=== PATIENT | female | born 1955 | race Caucasian/White ===

== ENCOUNTER → 2020-06-21 14:58 | Outpatient (BNVA) | payer MEDICARE, SELFPAY | PROVIDERS: PCP Family Medicine; Visit Provider Obstetrics & Gynecology | DX: R10.2 Pelvic and perineal pain (principal) | CPT/HCPCS: 99212 ==

== ENCOUNTER 2020-12-14 13:45 | Outpatient (REF) | payer MEDICARE, SELFPAY ==
[2020-12-14 16:33] LABS: Hematocrit 38.3 % (37-47); Hemoglobin 12.1 g/dl (12.0-16.0); Mean Corpuscular HGB Conc 31.6 g/dl (31.0-35.0); Mean Corpuscular Hemoglobin 26.9 pg (27.0-33.0); Mean Corpuscular Volume 85.1 fL (80-98); Mean Platelet Volume 10.2 fL (9.4-12.3); Platelet Count 395 X10*3/uL (160-400); Red Cell Distribution Width 14.2 % (11.0-16.0); White Blood Count 6.6 X10*3/uL (4.8-10.8)
[2020-12-14 17:07] LABS: Cholesterol 231 mg/dL; HDL Cholesterol 62 mg/dL; LDL Cholesterol Calculated 137 mg/dl; Triglycerides 160 mg/dL
[2020-12-14 17:29] LABS: Thyroid Stimulating Hormone 3.59 uIU/mL (0.32-4.0)
[2020-12-14 17:59] LABS: Erythrocyte Sedimentation Rate 13 MM/HR (0-20)
[2020-12-15 12:02] LABS: Antibody to SS-A Antigen <1.0 NEG AI (<1.0 NEG); Antibody to SS-B Antigen <1.0 NEG AI (<1.0 NEG)
[2020-12-15 13:12] LABS: Anti Nuclear Antibody Screen NEGATIVE (NEGATIVE)
== END 2020-12-14 13:46 | disposition home or self-care (01) ==
LOC: HO.HMGCLDS 13:45
PROVIDERS: PCP Nurse Practitioner Family; Visit Provider Nurse Practitioner Family
DX: I10 Essential (primary) hypertension (principal); E03.8 Other specified hypothyroidism; E06.3 Autoimmune thyroiditis; M79.10 Myalgia, unspecified site; M25.50 Pain in unspecified joint; R53.83 Other fatigue
CPT/HCPCS: 36415; 80061; 84443; 85027; 85652; 86038; 86039; 86235

== ENCOUNTER 2021-03-29 14:16 | Outpatient (REF) | payer MEDICARE, SELFPAY ==
--- NOTE | ~2021-03-29 | MM_ITS ---
EXAMINATION: MM SCREENING DIGITAL BREAST TOMOSYNTHESIS, BILATERAL CLINICAL INFORMATION: Screening. Asymptomatic. Family history breast cancer, sister. The lifetime risk of breast cancer based on the Tyrer-Cuzick Model is 13%. COMPARISON: Mammography: 06/29/2019, 05/29/2018, 05/09/2017, 10/29/2016 TECHNIQUE: Digital breast tomosynthesis is performed in both the craniocaudal and mediolateral oblique views along with computer-aided detection (CAD). Synthesized 2D images are generated from the tomosynthesis. FINDINGS: There are scattered areas of fibroglandular density (ACR BI-RADS breast composition Category b). There are no significant masses, abnormal calcifications, or other abnormalities. There is no developing density. The axilla are unremarkable. No skin thickening. MM/MM tomosynthesis screening BI IMPRESSION: No mammographic evidence of malignancy. ASSESSMENT: BI-RADS 1: Negative RECOMMENDATION: Routine annual mammography screening. This patient's information was entered into a reminder system with a target due date for their next mammogram.
== END 2021-03-29 14:17 | disposition home or self-care (01) ==
LOC: HO.MAMMO 14:16
PROVIDERS: PCP Nurse Practitioner Family; Visit Provider Nurse Practitioner Family
DX: Z12.31 Encounter for screening mammogram for malignant neoplasm of breast (principal)
CPT/HCPCS: 77063; 77067

== ENCOUNTER 2023-05-20 09:23 | Outpatient (REF) | payer MEDICARE, SELFPAY | END 2023-05-20 09:24 | disposition home or self-care (01) | LOC: HO.HMGCLDS 09:23 | PROVIDERS: PCP Nurse Practitioner Family; Visit Provider Nurse Practitioner Family | DX: Z00.00 Encounter for general adult medical examination without abnormal findings (principal); I10 Essential (primary) hypertension | CPT/HCPCS: 36415; 80053; 80061; 84443; 85025 ==

== ENCOUNTER 2023-10-07 13:58 | Outpatient (REF) | payer MEDICARE, SELFPAY | END 2023-10-07 13:59 | disposition home or self-care (01) | LOC: HO.MAMMO 13:58 | PROVIDERS: PCP Nurse Practitioner Family; Visit Provider Nurse Practitioner Family | DX: Z12.31 Encounter for screening mammogram for malignant neoplasm of breast (principal) | CPT/HCPCS: 77063; 77067 ==

== ENCOUNTER → 2023-10-07 14:15 | Outpatient (BNV) | payer MEDICARE, SELFPAY | PROVIDERS: PCP Nurse Practitioner Family; Visit Provider Radiology Diagnostic Radiology | DX: Z12.31 Encounter for screening mammogram for malignant neoplasm of breast (principal) | CPT/HCPCS: 77063; 77067 ==

== ENCOUNTER 2024-05-01 09:50 | Outpatient (REF) | payer MEDICARE, SELFPAY ==
[2024-05-01 13:26] LABS: MANUAL DIFF FLAG NO
[2024-05-01 13:34] LABS: Basophils Absolute Auto 0.1 X10*3/uL (0.0-0.2); Basophils Percent Auto 1.2 % (0-2); Eosinophils Absolute Auto 0.3 X10*3/uL (0.0-0.4); Eosinophils Percent Auto 4.6 % (0-4); Hemoglobin 12.4 g/dl (12.0-16.0); Imm Gran Abs Auto 0.04 X10*3/uL (0.00-0.03); Imm Gran Pct Auto 0.6 % (0.0-0.4); Lymphocytes Absolute Auto 1.3 X10*3/uL (1.2-4.9); Lymphocytes Percent Auto 19.7 % (20-40); Mean Corpuscular HGB Conc 33.5 g/dl (31.0-35.0); Mean Corpuscular Hemoglobin 30.5 pg (27.0-33.0); Mean Corpuscular Volume 91.1 fL (80.0-98.0); Mean Platelet Volume 10.9 fL (9.4-12.3); Monocytes Absolute Auto 0.5 X10*3/uL (0.1-1.2); Monocytes Percent Auto 6.6 % (2-11); Neutrophils Absolute Auto 4.6 x10*3/uL (2.0-8.3); Neutrophils Percent Auto 67.3 % (45-73); Platelet Count 298 X10*3/uL (160-400); Red Blood Count 4.06 X10*6/uL (4.20-5.50); Red Cell Distribution Width 12.9 % (11.0-16.0); White Blood Count 6.8 X10*3/uL (4.8-10.8)
[2024-05-01 13:53] LABS: Alanine Aminotransferase 11 U/L (0-31); Albumin Level 3.9 g/dL (3.5-5.0); Alkaline Phosphatase 155 U/L (39-117); Anion Gap 10 (12-20); Aspartate Amino Transferase 16 U/L (5-31); Bilirubin Total 0.9 mg/dL (0.0-1.0); Blood Urea Nitrogen 23 mg/dL (9-16); Calcium 9.8 mg/dL (8.4-10.2); Carbon Dioxide 27 mmol/L (22-29); Chloride 102 mmol/L (96-108); Cholesterol 182 mg/dL (<200); Estimated Glomerular Filt Rate > 60; Glucose Random 96 mg/dL (60-115); HDL Cholesterol 52 mg/dL (>40); LDL Cholesterol Calculated 104 mg/dL (<100); Potassium 4.2 mmol/L (3.3-5.1); Sodium 135 mmol/L (135-145); Total Protein 7.2 g/dL (6.5-8.0); Triglycerides 130 mg/dL (<150)
[2024-05-01 14:08] LABS: Free T4 (Free Thyroxine) 1.24 ng/dL (0.71-1.85); TSH reflex Free T4 0.92 uIU/mL (0.32-4.0)
[2024-05-01 14:10] LABS: Estimated Average Glucose 100 mg/dL; Hemoglobin A1c % 5.1 % (<6.0)
== END 2024-05-01 09:51 | disposition home or self-care (01) ==
LOC: HO.HMGCLDS 09:50
PROVIDERS: PCP Family Medicine; Visit Provider Family Medicine
DX: E78.2 Mixed hyperlipidemia (principal); I10 Essential (primary) hypertension; R73.09 Other abnormal glucose; E03.8 Other specified hypothyroidism; E06.3 Autoimmune thyroiditis; R53.83 Other fatigue
CPT/HCPCS: 36415; 80053; 80061; 82306; 83036; 84439; 84443; 85025

== ENCOUNTER 2024-10-12 14:09 | Outpatient (REF) | payer MEDICARE, SELFPAY ==
--- NOTE | ~2024-10-12 | MM_ITS ---
EXAMINATION: MM SCREENING DIGITAL BREAST TOMOSYNTHESIS, BILATERAL CLINICAL INFORMATION: Screening. Asymptomatic. COMPARISON: Mammography: Comparison is made with available priors TECHNIQUE: Digital breast mammography with tomosynthesis is performed in both the craniocaudal and mediolateral oblique views along with computer-aided detection (CAD). FINDINGS: The breasts are almost entirely fatty (ACR BI-RADS breast composition Category a). Bilateral reduction mammoplasty. There are no significant masses, abnormal calcifications, or other abnormalities. MM/MM tomosynthesis screening BI IMPRESSION: No mammographic evidence of malignancy. ASSESSMENT: BI-RADS BI-RADS 2 - Benign Findings RECOMMENDATION: Routine annual mammography screening. 1 year F/U This examination should not preclude the clinical evaluation of a suspicious palpable abnormality. This patient's information was entered into a reminder system with a target due date for their next mammogram. Electronically signed by: Lety Gracia DO 10/15/2024 06:00 AM [facility] [place]
--- OUTSIDE RECORDS SUMMARY | 2024-10-12 16:56 | XMS_ITS | Continuity of Care Document ---
Author Organization [facility] Address [address] [place] [address]- Care Team Providers Care Program Administrator Name Role Phone Lelia Marrero DO Primary Care Physician Encounter [facility] AC[facility] R [id number] Date(s): 05/28/24 - 09/18/24 [facility] [address] [place] [address]- Attending Physician: Salima Singh NP Encounter Type: Pre Office Visit Allergies, Adverse Reactions, Alerts No Known Allergies Immunizations Given and Recorded Vaccine Date Status Refusal Reason SARS-CoV-2 (COVID-19) mRNA-1273 vaccine 10/31/20 G iven SARS-CoV-2 (COVID-19) mRNA-1273 vaccine 10/03/20 G iven Medications morphine 15 mg oral tablet, extended release 1 tablet = 15 mg, By Mouth, Every 12 hours, PRN Pain , Moderate, # 28 tablet, 0 Refills, Maintenance, 06/23/10 10:32:16 AM EST, ER Tablet Start Date: 06/23/10 Stop Date: 07/07/10 Status: Ordered Quantity: 28.0 Unit: tablet Repeat number: 1 Patient Care team information Care Team Personnel Name: Roxi Lou RN Position: ANATOLIY FELDER RN Member Role: Primary Care Nurse Name: Lelia Marrero DO Position: Reference Physician Member Role: PCP Address: [address] [place] [address] Telecom: Name: Monica Padron RN Position: ANATOLIY RN Member Role: Primary Care Nurse Care Team Related Persons Name: STEVE RUBIN Insurance Providers Guarantor name: [facility]SH[facility] Information #: 1 Payer: SATISH Member Number: [id number] Policy Number: SATISH Group Number: [id number] Health Plan Information #: 2 Payer: NA Member Number: [id number] Policy Number: NA Group Number: NA
--- OUTSIDE RECORDS SUMMARY | 2024-10-12 16:56 | XMS_ITS | Continuity of Care Document ---
Author Organization [facility] Address [address] [place] [address]- Care Team Providers Care Train Starter Name Role Phone Lelia Marrero DO Primary Care Physician Encounter [facility] Date(s): 08/19/24 - 09/18/24 [facility] [address] [place], [place] [address] Attending Physician: Elijah Ferguson Admitting Physician: Elijah Ferguson Referring Physician: Elijah Ferguson Encounter Type: Triage Allergies, Adverse Reactions, Alerts No Known Allergies [...] Position: Reference Physician Member Role: PCP Address: [address] [place] [address] Telecom: Name: Monica Padron RN Position: [facility] RN Member Role: Primary Care Nurse Care Team Related Persons Name: CARYN STEVE Insurance Providers Guarantor name: [facility] Information #: 1 Payer: SATISH Member Number: NA Policy Number: NA Group Number: NA
--- OUTSIDE RECORDS SUMMARY | 2024-10-12 16:57 | XMS_ITS | Clinical Summary ---
Author Organization [facility] Address [address] [place], [place] [id number] Care Team Providers Care Ui Developer With Angular J[employer] Name Role Phone Cayetano Weaver MD Primary Care Provider Unavailab le Allergies No known active allergies Medications Medication Sig Dispensed Refills Start Date End Date Status cycloSPORINE (RESTASIS) 0.05 % ophthalmic emulsion Place 1 drop into both eyes 2 (two) times a day. 0 03/16/2022 Active celecoxib (CeleBREX) 100 MG capsuleIndications:A rthralgia, unspecified joint Take 1 capsule (100 mg total) by mouth 2 (two) times a day. 180 capsule 3 05/14/2023 Active levothyroxine (SYNTHROID) tablet 150 mcgIndications:Hypot hyroidism, unspecified type TAKE 1 TABLET(150 MCG) BY MOUTH DAILY 90 tablet 3 05/14/2023 Active losartan-hydrochloro thiazide (HYZAAR) 100-12.5 MG per tabletIndications:Es sential hypertension Take 1 tablet by mouth daily. 90 tablet 3 05/14/2023 Active metoprolol tartrate (LOPRESSOR) 25 MG tabletIndications:Pa lpitations Take 1 tablet (25 mg total) by mouth daily. 90 tablet 3 05/14/2023 Active omeprazole (PriLOSEC) 20 MG capsuleIndications:G astroesophageal reflux disease, unspecified whether esophagitis present Take 1 capsule (20 mg total) by mouth daily. 90 capsule 0 11/15/2023 Active vitamin D3 (cholecalciferol) 25 MCG (1000 UT) tablet Take 2 tablets (2,000 Units total) by mouth daily. 0 Active metFORMIN (GLUCOPHAGE-XR) ER 24 hr tablet 500 mgIndications:Morbid obesity (HCC) Take 1 tablet (500 mg total) by mouth Every evening with dinner. 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 Essential hypertension 12/10/2017 GERD (gastroesophageal reflux disease) 5 Overview: Dr Collier Osteoarthritis Overview: Knees Vitamin D deficiency Osteopenia Overview: DEXA: 07/2014 t-2.3 hips, FRAX 11%/2% Resolved Problems Problem Noted Date Diagnosed Date Resolved Date Morbid obesity with body mas s index (BMI) of 45.0 to 49.9 in adult 12/10/2017 05/15/2022 H/O colonoscopy 05/12/2016 04/13/2020 Overview: Normal Dr Collier Depression 04/13/2020 Immunizations Name Administration Dates Next Due Covid-19 (Moderna 12+) 100mcg/0.5mL dosage 06/02,10/31/2020,10/03/2020 Influenza Quad (High Dose Fl uzone) 0.7mL >65Yrs (HD-IIV4) 05/14/2023 Influenza TIV (IM) (inactive) 05/29/2018 Influenza Trivalent (Fluad) 0.5mL (65 yrs &>) 06/02/2024 Influenza Trivalent (Fluzone High Dose) 0.7 mL (65yrs &>) 05/12/2020 Pneumococcal Conjugate PCV20 06/02/2024 Pneumococcal Polysaccharide PPSV23 12/27/2015 Tdap 03/13/2018 Family History Medical History Relation Name Comments No Sig Med Hx Daughter Stroke Father Diabetes Maternal Grandmother Pulmonary fibrosis Mother No Sig Med Hx Sister Relation Name Status Comments Daughter Father Maternal Grandfather Maternal Grandmother Mother Paternal Grandfather Paternal Grandmother Sister Alive Social History Tobacco Use Types Packs/Day Years Used Date Smoking Tobacco: Never Smokeless Tobacco: Never Tobacco Cessation:Counseling Given: Not Answered Alcohol Use Standard Drinks/Week Comments No 0 (1 standard drink = 0.6 oz pur e alcohol) Sex and Gender Information Value Date Recorded Sex Assigned at Female 05/20/2019 3:57 PM EDT Gender Identity Female 05/20/2019 3:57 PM EDT Sexual Orientation Not on file Job Start Date Occupation Industry Not on file Not on file Not on file Last Filed Vital Signs Vital Sign Reading Time Taken Comments Blood Pressure 155/73 06/02/2024 10:39 AM EDT Pulse 58 06/02/2024 10:39 AM EDT Temperature 36.3 ??C (97.3 ??F) 11/15/2023 2:21 PM ED T Respiratory Rate 18 06/02/2024 10:33 AM EDT Oxygen Saturation 98% 06/02/2024 10:33 AM EDT Inhaled Oxygen Concentration - - Weight 103.9 kg (229 lb) 06/02/2024 10:33 AM EDT Height 160 cm (5' 3 ) 06/02/2024 10:33 AM EDT Body Mass Index 40.57 06/02/2024 10:33 AM EDT Plan of Treatment Health Maintenance Due Date Last Done Comments Hepatitis C Screening 1955 Shingrix-Zoster Vaccine (1 of 2) 2004 RSV Adult > 60+ Yrs or (1 - Risk 60-74 years 1-dose series) 2014 Osteoporosis Screening (DEXA Scan) 2019 COVID-19 Vaccine ( season) 2024 06/02/2021, 10/31/2020, 10/03/2020 BMI Counseling 06/02/2025 06/02/2024, 04/0 12/2023, 05/14/2023, Additional history exists Depression Screening 06/02/2025 06/02/2024, 06/02/2024, 12/18/2022, Additional history exists Fall Risk Assessment 06/02/2025 06/02/2024, 06/02/2024, 12/18/2022, Additional history exists Preventative Health Evaluation 06/02/2025 06/02/2024, 12/18/2022, 11/14/2021, Additional history exists Breast Cancer Screening (Mammogram) 10/07/2025 10/07/2023, 10/07/2023, 04/03/2021, Additional history exists Colon Cancer Screening (Colonoscopy) 05/12/2026 05/12/2016 DTap / Tdap / Td (2 - Td or Tdap) 03/13/2028 03/13/2018 Influenza Vaccine Completed 06/02/2024, , 05/12/2020, Additional history exists Pneumococcal Vaccine Completed 06/02/2024, 12/27/19 16 Hepatitis B Vaccines Aged Out No long er eligible based on patient's age to complete this topic RSV Ped < 20 months Aged Out No longe r eligible based on patient's age to complete this topic Care Teams Ui Developer With [employer] J[employer] Relationship Specialty Start Date End Date Cayetano Weaver MD PCP - General Family Medicine 11/15/23
--- OUTSIDE RECORDS SUMMARY | 2024-10-12 16:57 | XMS_ITS | Clinical Summary ---
Author Organization [address] Address [address] [facility] [place] [place] [address] Phone Care Team Providers Care Rides Attendant Name Role Phone Joshua Griggs MD Primary Care Provider Allergies No known active allergies Medications cycloSPORINE (RESTASIS) 0.05 % ophthalmic emulsion Place 1 drop into both eyes 2 (two) times a day. 2 Active celecoxib (CeleBREX) 100 mg capsule Take 1 capsule (100 mg total) by mouth 2 (two) times a day. 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 90 tablet 3 4 Active losartan-hydroCHL OROthiazide (HYZAAR) 100-12.5 mg per tabletIndications :Essential hypertension Take 1 tablet by mouth 1 (one) time each day. 90 tablet 3 4 Active metoprolol tartrate (LOPRESSOR) 25 mg tabletIndications :Essential hypertension Take 1 tablet (25 mg total) by mouth 1 (one) time each day. 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 GERD (gastroesophageal reflux disease) 5 Overview (10/01/2023): Dr Collier Encounters Date Type Department Care Team Description 09/10/2024 4:45 PM EST Telemedicine Primary Care - [address] [address] Joshua Griggs MD Morbid obesity (CMS/HCC) (Primary Dx) 09/02/2024 11:00 AM EST Telemedicine Family Medicine [address] [place] [address] Tony Sultana DO COVID-19 (Primary Dx) from Last 3 Months Immunizations Name Administration Dates Next Due Influenza Quadravalent, 0.5m l (Fluzone High-dose) 65yo and older 05/14/2023 Influenza trivalent, 0.5mL ( Fluzone High-dose) 65yo and older 05/12/2020 Influenza trivalent, 0.5mL, preservative free (Fluarix; FluLaval; Fluzone) ages 6mo and older (Afluria) 3 years and older 05/29/2018 Moderna SARS-CoV-2 COVID-19, mRNA, LNP-S, preservative free 06/02/2021,10/31/2020,10/03/2020 Pneumococcal polysaccharide 23 valent (Pneumovax 23) 2yo and older 12/27/2015 Tdap Tetanus diptheria acell ular pertussis (Boostrix; Adacel) 7yo and older 03/13/2018 Surgical History Surgery Date Site/Laterality Comments ESOPHAGOGASTRODUODENOSCOPY 04/27/2005 PROCEDURE:ESOPHAGOGASTRODUODENO SCOPY;COMMENT:Gastric polyp, GERD COLONOSCOPY 06/06/2016 PROCEDURE:COLONOSCOPY;COMMENT:N dalia Collier TOTAL KNEE ARTHROPLASTY 2010 Right PROCEDURE:TOTAL KNEE ARTHROPLASTY CHOLECYSTECTOMY PROCEDURE:LAPAROSCOPIC CHOLECYSTECTOMY LEFT OOPHORECTOMY PROCEDURE:LEFT OOPHORECTOMY OTHER SURGICAL HISTORY Left PROCEDURE:thumb arthropathy BREAST SURGERY PROCEDURE:REDUCTION MAMMAPLASTY TOTAL KNEE ARTHROPLASTY 2015 Left PROCEDURE:REPLACEMENT TOTAL KNEE TUBAL LIGATION PROCEDURE:TUBAL LIGATION JOINT REPLACEMENT PROCEDURE:JOINT REPLACEMENT ESOPHAGOGASTRODUODENOSCOPY 12/19/2007 PROCEDURE:ESOPHAGOGASTRODUODENO SCOPY;COMMENT: EGD: GERD, Mild chronic gastritis, H Pylori neg, Gastric polyp COLONOSCOPY 04/27/2005 PROCEDURE:COLONOSCOPY;COMMENT:N dalia Medical History Medical History Date Comments Hypothyroid DX:Hypothyroid Vitamin D deficiency DX:Vitamin D deficiency Osteopenia DX:Osteopenia;CO MMENT:DEXA: 05/22/2007, 07/2014 t-2.3 hips, FRAX 11%/2%, 05/2018 Osteopenia: T-2.2 hip ( 14.3% decrease) FRAX 9.2/1.3% H/O colonoscopy 06/08/2016 DX:H/O colonosco py;COMMENT:05/[address] Collier, 12/19/2007 Abnormal breast finding 10/29/2016 DX:Abnor mal breast finding;COMMENT:RT US faint oval parenchymal density Prob benign, repeat Mammo 04/2017 benign repeat 12 months Osteoarthritis DX:Osteoarthriti s;COMMENT:Knees Depression DX:Depression GERD (gastroesophageal reflux disease) 04/2005 DX:GERD (gastroesophageal reflux disease);COMMENT:12/2007 EGD GERD, Gastric polyp Dr Collier Hypertension DX:Hypertension Morbid obesity (CMS/HCC) 10/2015 DX:Morb id obesity (HCC);COMMENT:Dr Jer Senior Screening for breast cancer DX:S creening for breast cancer;COMMENT:10/2016, 05/09/2017 Benign, 05/29/2018 benign Screening for cervical cancer DX :Screening for cervical cancer;COMMENT:10/2016 neg/neg Family History Medical History Relation Name Comments No Known Problems Daughter Stroke Father Diabetes Maternal Grandmother Pulmonary fibrosis Mother No Known Problems Sister Relation Name Status Comments Daughter Father Maternal Grandfather Maternal Grandmother Mother Paternal Grandfather Paternal Grandmother Sister Alive Social History Tobacco Use Types Packs/Day Years Used Date Smoking Tobacco: Never Smokeless Tobacco: Never Alcohol Use Standard Drinks/Week Comments No 0 (1 standard drink = 0.6 oz pur e alcohol) Housing Instability Answer Date Recorde d Are you worried that in the next 2 months you may not have stable housing? No 09/02/2024 Food Access & Nutrition Answer Date Rec orded Do you have access to a vari ety of food including fruits and vegetables? Yes 09/02/2024 Health Literacy Answer Date Recorded How often do you need to hav e someone help you when you read instructions, pamphlets, or other written material from your doctor or pharmacy? Never 09/02/2024 Caregiver: How often do you need to have someone help you when you read instructions, pamphlets, or other written material from your doctor or pharmacy? Not on file 09/02/2024 Transportation Answer Date Recorded Has the lack of transportati on kept you from meetings, work, or from getting things needed for daily living? No Has the lack of transportati on kept you from medical appointments or from getting medications? No 09/02/2024 Social Isolation Answer Date Recorded How often do you feel lonely or isolated from th ose around you? Never 09/02/2024 Food Risk Answer Date Recorded Within the past 12 months we worried whether our food would run out before we got money to buy more. Never true 09/02/2024 Within the past 12 months th e food we bought just didn't last and we didn't have money to get more. Never true 09/02/2024 Dependent Care Answer Date Recorded Do you need help finding or paying for care for your loved ones. For example, child therapist or elderly care for an older adult? No 09/02/2024 Education Answer Date Recorded Do you think completing more education or training, like finishing a GED, going to college, or learning a trade, would be helpful for you? Yes 09/02/2024 Employment and Income Answer Date Recor ded During the last four weeks, have you been actively looking for work? No 09/02/2024 Living Situation Answer Date Recorded What is your living situation? 0 09/02/2024 Comments Unknown Sex and Gender Information Value Date Recorded Sex Assigned at Not on file Legal Sex Female 10:58 PM EST Gender Identity Not on file Sexual Orientation Not on file Obstetrics History Last Filed Vital Signs Vital Sign Reading Time Taken Comments Blood Pressure 155/73 06/02/2024 10:39 AM EDT Sitting Right arm Pulse 58 06/02/2024 10:39 AM EDT Temperature - - Respiratory Rate - - Oxygen Saturation - - Inhaled Oxygen Concentration - - Weight 104 kg (229 lb) 06/02/2024 10:33 AM EDT Height 160 cm (5' 3 ) 06/02/2024 10:33 AM EDT Body Mass Index 40.57 06/02/2024 10:33 AM EDT Plan of Treatment Upcoming Encounters Date Type Department Care Team (Late st Contact Info) Description 03/15/2025 1:30 PM EDT Office Visit Internal Medicine - [facility] [address] [place] [address] Joshua Griggs MD [address] [place] [address] Health Maintenance Due Date Last Done Comments Breast Cancer Screening 1955 Zoster Vaccines (1 of 2) 2004 RSV Immunization Patients 60+ Years Old (1 - Risk 60-74 years 1-dose series) 2014 Cholesterol Screening (Lipid Panel) 07/15/2022 Hepatitis C Screening 07/15/2022 Medicare Annual Wellness Visit 07/15/2022 Osteoporosis Screening (Bone Density Screening) 07/15/2022 Hypertension/CHF/CAD Annual BMP Blood Test 08/17/2022 08/17/2021, 04/13/2020 Falls Risk Assessment 12/19/2023 12/18/2022 COVID-19 Vaccine ( season) 2024 06/02/2021, 10/31/2020, 10/03/2020 Depression Screening 09/02/2025 09/02/2024, 12/19/19 23 Social Influencers of Health Screening 09/02/2025 09/02/2024 Colorectal Cancer Screening: Colonoscopy 05/12/2026 05/12/2016 DTaP,Tdap,and Td Vaccines (2 - Td or Tdap) 03/13/2028 03/13/2018 Influenza Vaccine Completed 06/02/2024, , 05/12/2020, Additional history exists Pneumococcal Vaccine: 50+ Years Completed 06/02/2024, 12/27/2015 HIB Vaccines Aged Out No longer eligi ble based on patient's age to complete this topic HPV Vaccines Aged Out No longer eligi ble based on patient's age to complete this topic Hepatitis A Vaccines Aged Out No long er eligible based on patient's age to complete this topic Hepatitis B Vaccines Aged Out No long er eligible based on patient's age to complete this topic IPV Vaccines Aged Out No longer eligi ble based on patient's age to complete this topic MMR Vaccines Aged Out No longer eligi ble based on patient's age to complete this topic Meningococcal ACWY Vaccine Aged Out N o longer eligible based on patient's age to complete this topic Meningococcal B Vacine Aged Out No lo nger eligible based on patient's age to complete this topic RSV Immunization Patients Under 20 months Aged Out No longer eligible based on patient's age to complete this topic Varicella Vaccines Aged Out No longer eligible based on patient's age to complete this topic Procedures Procedure Name Priority Date/Time Associated Diagnosis Comments DEPRESSION SCREENING Routine 12/18/2022 FALLS RISK ASSESSMENT Routine 12/18/2022 ANNUAL BMP BLOOD TEST Routine 08/17/2021 COLONOSCOPY Routine 05/12/2016 from Last 3 Months or Most Recently Relevant to Health Maintenance Results * Falls Risk Assessment (12/18/2022) Pathologist [facility] [place] Risk Assessment abstracted Historical Provider HEALTH MAINTENANCE Final Result * Depression Screening (12/18/2022) Pathologist [facility] Depression Screening abstracted Historical Provider HEALTH MAINTENANCE Final Result * Annual BMP Blood Test (08/17/2021) Pathologist [facility] Annual BMP Blood Test abstracted us Historical Provider HEALTH MAINTENANCE Final Result * Colonoscopy (05/12/2016) Colonoscopy abstracted Anatomical Region Laterality Modality Other Historical Provider HEALTH MAINTENANCE Final Result from Last 3 Months or Most Recently Relevant to Health Maintenance Insurance [employer] [employer]IC[place] Care Teams Rides Attendant Relationship Specialty Start Date End Date Joshua Griggs MD [address] [facility] [address] [place] [address] PCP - General Internal Medicine 07/07/24
--- OUTSIDE RECORDS SUMMARY | 2024-10-12 16:57 | XMS_ITS ---
Author Name [facility] Organization Unknown History of Medication Use Medication Directions Dispensed Refills Start Date End Date Stat nirmatrelvir-ritonavi r (Paxlovid) 300 mg (150 mg x 2)-100 mg tablet therapy pack Take 3 tablets by mouth every 12 (twelve) hours for 5 days. Take number of ordered nirmatrelvir tablets (300 mg = 2 tablet) and ritonavir tablet (100 mg = 1 tablet) at the same time 09/02/2024 active levothyroxine (SYNTHROID, LEVOTHROID) 150 mcg tablet Take 1 tablet (150 mcg total) by mouth 1 (one) time each day before breakfast. 07/30/2024 active losartan-hydrochlorot hiazide (HYZAAR) 100-12.5 MG per tablet Take 1 tablet by mouth daily. 05/14/2023 active cycloSPORINE (RESTASIS) 0.05 % ophthalmic emulsion Place 1 drop into both eyes 2 (two) times a day. 03/16/2022 active celecoxib (CeleBREX) 100 mg capsule Take 1 capsule (100 mg total) by mouth 2 (two) times a day. 05/14/2023 active losartan-hydroCHLOROt hiazide (HYZAAR) 100-12.5 mg per tablet Take 1 tablet by mouth 1 (one) time each day. 05/14/2023 active cycloSPORINE (RESTASIS) 0.05 % ophthalmic emulsion Place 1 drop into both eyes 2 (two) times a day. 03/16/2022 active metoprolol tartrate (LOPRESSOR) 25 MG tablet Take 1 tablet (25 mg total) by mouth daily. 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 active 2017-12-10 Problem[address] [facility] Vitamin D deficiency active 2023-10-01 ProblemAct [facility] Osteoarthritis active 2023-10-01 Problem[address] [facility] Essential hypertension active 2017-12-10 ProblemAct [facility] Vitamin D deficiency active ProblemAct [facility] Mixed hyperlipidemia active EncounterDiagnosisA ct [facility] Other fatigue active EncounterDiagnosisAct [facility] Elevated hemoglobin A1c active EncounterDiagnosisAct [facility] MG Osteopenia active 2023-10-01 ProblemAct [facility] Osteoarthritis active ProblemAct [facility] N[facility] GERD (gastroesophageal reflux disease) active 2005-04-12 ProblemAct [facility] Osteopenia active ProblemAct [facility] 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 active 2017-12-10 ProblemAct [facility] Morbid obesity (CMS/HCC) active EncounterDiagnosisAct [facility] Immunizations Vaccine Date Source Lot Number Status Moderna SARS-CoV-2 COVID-19, mRNA, LNP-S, preservative free 06/02/2021 [facility] completed Tdap Tetanus diptheria acell ular pertussis (Boostrix; Adacel) 7yo and older 03/13/2018 [facility] [id number] completed Influenza Quadravalent, 0.5m l (Fluzone High-dose) 65yo and older 05/14/2023 [facility] [id number] comple natanael Influenza Trivalent (Fluad) 0.5mL (65 yrs &>) 06/02/2024 [facility] [id number] completed Pneumococcal Conjugate PCV20 06/02/2024 [facility] [id number] completed Pneumococcal polysaccharide 23 valent (Pneumovax 23) 2yo and older 12/27/2015 [facility] com pleted Moderna SARS-CoV-2 COVID-19, mRNA, LNP-S, preservative free 10/03/2020 [facility] completed Influenza trivalent, 0.5mL, preservative free (Fluarix; FluLaval; Fluzone) ages 6mo and older (Afluria) 3 years and older 05/29/2018 [facility] Moderna SARS-CoV-2 COVID-19, mRNA, LNP-S, preservative free 10/31/2020 [facility] completed Influenza trivalent, 0.5mL ( Fluzone High-dose) 65yo and older 05/12/2020 [facility] [id number] comple natanael
== END 2024-10-12 14:10 | disposition home or self-care (01) ==
LOC: HO.MAMMO 14:09
PROVIDERS: PCP Internal Medicine; Visit Provider Internal Medicine
DX: Z12.31 Encounter for screening mammogram for malignant neoplasm of breast (principal)
CPT/HCPCS: 77063; 77067

== ENCOUNTER → 2024-10-12 14:15 | Outpatient (BNV) | payer MEDICARE, SELFPAY | PROVIDERS: PCP Internal Medicine; Visit Provider Internal Medicine | DX: Z12.31 Encounter for screening mammogram for malignant neoplasm of breast (principal) | CPT/HCPCS: 77063; 77067 ==

== ENCOUNTER 2025-07-05 08:15 | Outpatient (REF) | payer MEDICARE, SELFPAY ==
--- OUTSIDE RECORDS SUMMARY | 2025-07-05 08:23 | XMS_ITS | Clinical Summary ---
Author Organization [facility] [employer] Build ing Address [facility] [employer] [place] [address] Phone Care Team Providers Care Grain Combine Driver Name Role Phone Joshua Griggs MD Primary Care Provider [phone] Allergies No known active allergies Medications cycloSPORINE (RESTASIS) 0.05 % ophthalmic emulsion Place 1 drop into both eyes 2 (two) times a day. 2 Active metoprolol tartrate (LOPRESSOR) 25 mg tabletIndications :Essential hypertension Take 1 tablet (25 mg total) by mouth 1 (one) time each day. 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 90 tablet 3 5 Active celecoxib (CeleBREX) 100 mg capsule Take 1 capsule (100 mg total) by mouth 2 (two) times a day. 180 capsule 3 5 Active losartan-hydroCHL OROthiazide (HYZAAR) 100-12.5 mg per tabletIndications :Essential hypertension Take 1 tablet by mouth 1 (one) time each day. 90 tablet 3 5 Active omeprazole (PriLOSEC) [address] capsule Take 1 capsule (20 mg total) by mouth 1 (one) time each day. 90 capsule 3 5 Active metFORMIN (GLUCOPHAGE) 500 mg tabletIndications :Morbid obesity (CMS/HCC V24, CMS/HCC V28) Take 1 tablet (500 mg total) by mouth 2 (two) times a day with meals. 180 each 3 5 05/25/20 26 Active Active Problems Problem Noted Date Diagnosed Date Osteoarthritis 10/01/2023 Overview (10/01/2023): Knees Osteopenia 10/01/2023 Overview (10/01/2023): DEXA: 07/2014 t-2.3 hips, FRAX 11%/2% Assessment & Plan (05/25/2025 1:55 PM EDT): -repeat dexa scan Vitamin D deficiency 10/01/2023 Essential hypertension 12/10/2017 Assessment & Plan (05/25/2025 1:55 PM EDT): -stable Orders: metoprolol tartrate (LOPRESSOR) 25 mg tablet; Take 1 tablet (25 mg total) by mouth 1 (one) time each day. losartan-hydroCHLOROthiazide (HYZAAR) 100-12.5 mg per tablet; Take 1 tablet by mouth 1 (one) time each day. 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 V24, [facility] V28); Encounter for immunization from Last 3 Months Immunizations Immunization Administration Dates Next Due Influenza Quadravalent, 0.5m l (Fluzone High-dose) 65yo and older 05/14/2023 Influenza trivalent, 0.5mL ( Fluad) 65yo and older 05/25/2025 Influenza trivalent, 0.5mL ( Fluzone High-dose) 65yo [...] 04/27/2005 PROCEDURE:ESOPHAGOGASTRODUODENO SCOPY;COMMENT:Gastric polyp, GERD COLONOSCOPY 06/06/2016 PROCEDURE:COLONOSCOPY;COMMENT:Ian Collier TOTAL KNEE ARTHROPLASTY 2010 Right PROCEDURE:TOTAL KNEE ARTHROPLASTY CHOLECYSTECTOMY PROCEDURE:LAPAROSCOPIC CHOLECYSTECTOMY LEFT OOPHORECTOMY PROCEDURE:LEFT OOPHORECTOMY OTHER SURGICAL HISTORY Left PROCEDURE:thumb arthropathy BREAST SURGERY PROCEDURE:REDUCTION MAMMAPLASTY TOTAL KNEE ARTHROPLASTY 2014 Left PROCEDURE:REPLACEMENT TOTAL KNEE TUBAL LIGATION PROCEDURE:TUBAL LIGATION JOINT REPLACEMENT PROCEDURE:JOINT REPLACEMENT ESOPHAGOGASTRODUODENOSCOPY 12/19/2007 PROCEDURE:ESOPHAGOGASTRODUODENO SCOPY;COMMENT: EGD: GERD, Mild chronic gastritis, H Pylori neg, Gastric polyp COLONOSCOPY 04/27/2005 PROCEDURE:COLONOSCOPY;COMMENT:Ian gómez Medical History Medical History Date Comments Hypothyroid [...] polyp Dr Collier Hypertension DX:Hypertension Morbid obesity (CMS/HCC V24, CMS/HCC V28) 10/2015 DX:Morbid obesity (HCC);COMM ENT:Dr Randle Qsjuli Screening for breast cancer DX:S creening for [...] do you feel lonely or isolated from ose around you? Never 09/02/2024 Food Risk [...] care for your loved ones. For example, children's zoo caretaker or elderly care for an older adult? [...] Date Recorded What is your living situation? Unrecognized valu e 09/02/2024 Comments Unknown Sex and Gender Information Value Date Recorded Sex Assigned at Not on file Legal Sex Female 10:58 PM EST Gender Identity Not on file Sexual Orientation Not on file Obstetrics History Last Filed Vital Signs Vital Sign Reading Time Taken Comments Blood Pressure 108/83 05/25/2025 1:16 PM EDT Pulse 63 05/25/2025 1:16 PM EDT Temperature 36.1 C (97 F) 05/25/2025 1:16 PM EDT Respiratory Rate 18 05/25/2025 1:16 PM EDT Oxygen Saturation 92% 05/25/2025 1:16 PM EDT Inhaled Oxygen Concentration - - Weight 109 kg (239 lb 9.6 oz) 05/25/2025 1:16 PM EDT Height 157.5 cm (5' 2 ) 05/25/2025 1:16 PM EDT Body Mass Index 43.82 05/25/2025 1:16 PM EDT Plan of Treatment Upcoming Encounters Date Type Department Care Team (Late st Contact Info) Description 05/27/2026 1:30 PM EDT Office Visit Internal Medicine - Jessie Locks [address] [place] [address] Joshua Griggs MD [address] [place] [address] Health Maintenance Due Date Last Done Comments RSV Immunization Adult Patients (1 - Risk 50-74 years 1-dose series) 2004 Zoster Vaccines (1 of 2) 2004 Cholesterol Screening (Lipid Panel) 07/15/2022 Hepatitis C Screening 07/15/2022 Osteoporosis Screening (Bone Density Screening) 07/15/2022 Hypertension/CHF/CAD Annual BMP Blood Test 08/17/2022 08/17/2021, 04/13/2020 Falls Risk Assessment 12/19/2023 12/18/2022 COVID-19 Vaccine ( season) 2025 06/02/2021, 10/31/2020, 10/03/2020 Social Influencers of Health Screening 09/02/2025 09/02/2024 Colorectal Cancer Screening: Colonoscopy 05/12/2026 05/12/2016 Medicare Annual Wellness Visit 05/25/2026 05/25/2025 Breast Cancer Screening 10/15/2026 10/15/2024, 10/15 DTaP,Tdap,and Td Vaccines (2 - Td or Tdap) 03/13/2028 03/13/2018 Pneumococcal Vaccine: 50+ Years Completed 06/02/2024, 12/27/2015 Depression Screening Completed 09/02/2024, 12/19/19 23 Influenza Vaccine Completed 05/25/2025, , 05/14/2023, Additional history exists HIB Vaccines Aged Out No longer eligi [...] age to complete this topic Meningococcal B Vaccine Aged Out No l onger eligible based on patient's age to complete this topic RSV Immunization Patients Under 20 months Aged Out No longer eligible based on patient's age to complete this topic Varicella Vaccines Aged Out No longer eligible based on patient's age to complete this topic Procedures Procedure Name Priority Date/Time Associated Diagnosis Comments EXTERNAL MAMMOGRAM REPORT 10/15/2024 DEPRESSION SCREENING Routine 12/18/2022 FALLS RISK ASSESSMENT Routine 12/18/2022 ANNUAL BMP BLOOD TEST Routine 08/17/2021 COLONOSCOPY Routine 05/12/2016 from Last 3 Months or Most Recently Relevant to Health Maintenance Results * External Mammogram Report (10/15/2024) Anatomical Region Laterality Modality Mammography Provider [facility] BI PROCEDURES Final Result * Falls Risk Assessment (12/18/2022) [facility] Falls Risk Assessment abstracted [facility] Provider HEALTH MAINTENANCE Final Result * Depression Screening (12/18/2022) Pathologist [facility] Depression Screening abstracted Historical Provider HEALTH MAINTENANCE Final Result * Annual BMP Blood Test (08/17/2021) Pathologist [facility] Annual BMP Blood Test abstracted [facility] Provider HEALTH MAINTENANCE Final Result * Colonoscopy (05/12/2016) Pathologist [facility] Colonoscopy abstracted Anatomical Region Laterality Modality Other [facility] Provider HEALTH MAINTENANCE Final Result from Last 3 Months or Most Recently Relevant to Health Maintenance Insurance [employer] - [place] MEDICARE ADVANTAGE Care Teams Grain Combine Driver Relationship Specialty Start Date End Date Josuha Griggs MD [address] [facility] [place] [address] PCP - General Internal Medicine 07/07/24
--- OUTSIDE RECORDS SUMMARY | 2025-07-05 08:23 | XMS_ITS | Patient Health Record ---
Author Organization [facility] Address [address] [place] [address] Care Team Providers Care Building Operator Name Role Phone Lelia Marrero DO Primary Care Provider Vinny Morrow Jr Reason For Referral No Information Medications Medication SIG (Take, Route, Frequency, Duration) Notes Start Date End Date Status Omeprazole 20 MG Capsule Delayed Release 2 capsules Orally Once a day Active Arthrotec 75-0.2 MG Tablet Delayed Release 1 tablet Orally Twice a day Active Levothyroxine Sodium 125 MCG Tablet 1 tablet Orally Once a day Active Wellbutrin XL 150 MG Tablet Extended Release 24 Hour 1 tablet in the morning Orally Once a day Active Valsartan-hydroCHLOROthiazid e 160-25 MG Tablet 1 tablet Orally Once a day Active Social History Social History Additional Details Category Social Info Options Details Miscellaneous: Marital status: Occupation: OR tech at [employer] Problems Problem Type SNOMED Code ICD Code Onset Dates Problem Status W/U Status Risk Notes Problem Colon cancer screening (240040332) Colon cancer screening (Z12.11) Active confirmed Problem Esophageal reflux (036565366) Esophageal reflux (K21.9) Active confirmed Problem Gastro-esophagea l reflux disease without esophagitis (586047042) Gastro-esophage al reflux disease without esophagitis (K21.9) Active confirmed Plan Of Treatment Future Test Test Name Order Date COLONOSCOPY 01/12/2016 Insurance Providers Payer Name Payer Address Payer Phone Subscriber Number Group Number Insured Name Patient Relationship to Insured Coverage Start Date Coverage End Date [facility] [address] [facility] [phone] [id number] ASHLEY RUBIN Self - patient is the insured Medical (General) History Medical History History ICD Code egd and colonoscopy 12-19-2007 gerd gastric polyps hyperthyroidism status post radioactive iodine ablation elevated alkalline phosphatase Denies NH,DM,CVA,Lung disease,renal dise ase Surgical History Surgery Date(Month/Year) left knee replacement right knee replacement cholecystectomy thumb fusion tubal ligation breast augmentation-reduction
--- OUTSIDE RECORDS SUMMARY | 2025-07-05 08:23 | XMS_ITS ---
Author Name [facility] Organization Unknown History of Medication Use Medication Directions Dispensed Refills Start Date End Date Stat metFORMIN (GLUCOPHAGE) 500 mg tablet Take 1 tablet (500 mg total) by mouth 2 (two) times a day with meals. 05/25/2025 active nirmatrelvir-ritonav ir (Paxlovid) 300 mg (150 mg x 2)-100 [...] time each day before breakfast. 07/30/2024 active metFORMIN (GLUCOPHAGE-XR) ER 24 hr tablet 500 mg Take 1 tablet (500 mg total) by mouth Every evening with dinner. 06/02/2024 active omeprazole (PriLOSEC) 20 MG capsule Take 1 capsule (20 mg total) by mouth daily. 05/14/2023 11/15/2023 active celecoxib (CeleBREX) 100 mg capsule Take 1 capsule (100 mg total) by mouth 2 (two) times a day. 05/14/2023 active celecoxib (CeleBREX) 100 MG capsule Take 1 capsule (100 mg total) by mouth 2 (two) times a day. 05/14/2023 active levothyroxine (SYNTHROID, LEVOTHROID) 150 mcg tablet TAKE 1 TABLET(150 MCG) BY MOUTH DAILY 05/14/2023 active levothyroxine (SYNTHROID) tablet 150 mcg TAKE 1 TABLET(150 MCG) BY MOUTH DAILY 05/14/2023 active losartan-hydrochloro thiazide (HYZAAR) 100-12.5 MG per tablet Take 1 tablet by mouth daily. 05/14/2023 active losartan-hydroCHLORO thiazide (HYZAAR) 100-12.5 mg per tablet Take 1 tablet by mouth 1 (one) time each day. 05/14/2023 active metoprolol tartrate (LOPRESSOR) 25 mg tablet Take 1 tablet (25 mg total) by mouth 1 (one) time each day. 05/14/2023 active metoprolol tartrate (LOPRESSOR) 25 MG tablet Take 1 tablet (25 mg total) by mouth daily. 05/14/2023 active omeprazole (PriLOSEC) [address] capsule TAKE 1 CAPSULE(20 MG) BY MOUTH TWICE DAILY 05/14/2023 active cycloSPORINE (RESTASIS) 0.05 % ophthalmic emulsion Place 1 drop into both eyes 2 (two) times a day. 03/16/2022 active cycloSPORINE (RESTASIS) 0.05 % ophthalmic emulsion Place 1 drop into both eyes 2 (two) times a day. 03/16/2022 active vitamin D3 (cholecalciferol) 25 MCG (1000 UT) tablet Take 2 tablets (2,000 Units total) by mouth daily. 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 active 2017-12-10 ProblemAct [facility] Osteopenia active 2023-10-01 Problem[address] [facility] Morbid obesity (CMS/HCC V24, CMS/HCC V28) active EncounterDiagnosisAct [facility] Osteoarthritis active 2023-10-[address] [facility] Abnormal finding of blood chemistry, unspecified active EncounterDiagnosisAct [facility] Asymptomatic postmenopausal state active EncounterDiagnosisAct [facility] Encounter for immunization active EncounterDiagnosisAct [facility] Essential hypertension active 2017-12-10 ProblemAct [facility] GERD (gastroesophageal reflux disease) active 2005-04-12 ProblemAct [facility] Osteopenia active ProblemAct [facility] Osteoarthritis active ProblemAct [facility] Vitamin D deficiency active ProblemAct [facility] Immunizations Vaccine Date Source Lot Number Status Influenza trivalent, 0.5mL ( Fluad) 65yo and older 05/25/2025 [facility] FLUAD completed Influenza Trivalent (Fluad) 0.5mL (65 yrs &>) 06/02/2024 [facility] [id number] completed Pneumococcal Conjugate PCV20 06/02/2024 [facility] [id number] completed Influenza Quadravalent, 0.5m l (Fluzone High-dose) 65yo and older 05/14/2023 [facility] [id number] comple natanael Moderna SARS-CoV-2 COVID-19, mRNA, LNP-S, preservative free 06/02/2021 [facility] completed Moderna SARS-CoV-2 COVID-19, mRNA, LNP-S, preservative free 10/31/2020 [facility] [id number] completed Moderna SARS-CoV-2 COVID-19, mRNA, LNP-S, preservative free 10/03/2020 [facility] [id number] completed Influenza trivalent, 0.5mL ( Fluzone High-dose) 65yo and older 05/12/2020 [facility] [id number] comple natanael Influenza trivalent, 0.5mL, preservative free (Fluarix; FluLaval; Fluzone) ages 6mo and older (Afluria) 3 years and older 05/29/2018 [facility] completed Tdap Tetanus diptheria acell ular pertussis (Boostrix; Adacel) 7yo and older 03/13/2018 [facility] [id number] completed Pneumococcal polysaccharide 23 valent (Pneumovax 23) 2yo and older 12/27/2015 [facility] com pleted Encounters Encounter Type Encounter Reason Primary Diagnosis Location Date Ambulatory Follow-up Encounter for alexx maurice adult medical examination without abnormal findings [facility] [place] Amb[place] Morbid (severe) obesity due to excess calories Morbid (severe) obesity due to excess calories [facility] 09/11/2024 Ambulatory COVID-19 COVID-[address] [facility] 09/02/2024 Ambulatory Morbid (severe) obesity due to excess calories Morbid (severe) obesity due to excess calories [facility] 06/02/2024 Care Team Organization Name Specialty Phone Email Start Date End [facility] NORMA IVERSON Primary Care 09/02/[address] [facility] GLORY Primary Care 06/22/[address] [facility] LAMAR HOLDER Primary Care 06/19/2024
--- OUTSIDE RECORDS SUMMARY | 2025-07-05 08:23 | XMS_ITS | Clinical Summary ---
Author Organization [facility] Address [address] [place], [place] [id number] Care Team Providers Care Master Of Ceremonies Name Role Phone Cayetano Weaver MD Primary Care Provider Unavailab le Allergies No known active allergies Medications Medication Sig Dispensed Refills Start Date End Date Status cycloSPORINE (RESTASIS) 0.05 % ophthalmic emulsion Place 1 drop into both eyes 2 (two) times a day. 0 03/16/2022 Active celecoxib (CeleBREX) 100 MG capsuleIndications:Ar thralgia, unspecified joint Take 1 capsule (100 mg total) by mouth 2 (two) times a day. 180 capsule 3 05/14/2023 Active levothyroxine (SYNTHROID) tablet 150 mcgIndications:Hypoth yroidism, unspecified type TAKE 1 TABLET(150 MCG) BY MOUTH DAILY 90 tablet 3 05/14/2023 Active losartan-hydrochlorot hiazide (HYZAAR) 100-12.5 MG per tabletIndications:Ess ential hypertension Take 1 tablet by mouth daily. 90 tablet 3 05/14/2023 Active metoprolol tartrate (LOPRESSOR) 25 MG tabletIndications:Pal pitations Take 1 tablet (25 mg total) by mouth daily. 90 tablet 3 05/14/2023 Active omeprazole (PriLOSEC) 20 MG capsuleIndications:Ga stroesophageal reflux disease, unspecified whether esophagitis present Take 1 capsule (20 mg total) by mouth daily. 90 capsule 0 11/15/2023 Active vitamin D3 (cholecalciferol) 25 MCG (1000 UT) tablet Take 2 tablets (2,000 Units total) by mouth daily. 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 Essential hypertension 12/10/2017 GERD (gastroesophageal reflux disease) 09/01/200 5 Overview: Dr Collier Osteoarthritis Overview: Knees [...] 58 06/02/2024 10:39 AM EDT Temperature 36.3 C (97.3 F) 11/15/2023 2:21 PM EDT Respiratory Rate 18 06/02/2024 10:33 AM EDT [...] 1954 Shingrix-Zoster Vaccine (1 of 2) 2004 Osteoporosis Screening (DEXA Scan) 2019 COVID-19 Vaccine ( season) 2025 06/02/2021, 10/31/2020, 10/03/2020 Influenza Vaccine (#1) 2025 , 05/14/2023, 05/12/2020, Additional history exists BMI Counseling 06/02/2025 06/02/2024, 04/12/2023, 05/14/2023, Additional history exists Depression Screening 06/02/2025 06/02/2024, 06/02/2024, 12/18/2022, Additional history exists Fall Risk Assessment 06/02/2025 06/02/2024, 06/02/2024, 12/18/2022, Additional history exists Preventative Health Evaluation 06/02/2025 06/02/2024, 12/18/2022, 11/14/2021, Additional history exists Breast Cancer Screening (Mammogram) 10/07/2025 10/07/2023, 10/07/2023, 04/03/2021, Additional history exists Colon Cancer Screening (Colonoscopy) 05/12/2026 05/12/2016 DTap / Tdap / Td (2 - Td or Tdap) 03/13/2028 03/13/2018 RSV Adult > 60+ Yrs or (1 - 1-dose 75+ series) 2029 Pneumococcal Vaccine Completed 06/02/2024, 12/27/19 16 Hepatitis B Vaccines Aged Out No long er eligible based on patient's age to complete this topic RSV Ped < 20 months Aged Out No longe r eligible based on patient's age to complete this topic Care Teams Master Of Ceremonies Relationship Specialty Start Date End Date Cayetano Weaver MD PCP - General Family Medicine 11/15/23
[2025-07-05 10:06] LABS: MANUAL DIFF FLAG NO
[2025-07-05 10:15] LABS: Hematocrit 41.4 % (37.0-47.0); Hemoglobin 13.5 g/dl (12.0-16.0); Imm Gran Abs Auto 0.02 X10*3/uL (0.00-0.03); Imm Gran Pct Auto 0.4 % (0.0-0.4); Lymphocytes Absolute Auto 1.3 X10*3/uL (1.2-4.9); Mean Corpuscular HGB Conc 32.6 g/dl (31.0-35.0); Mean Corpuscular Hemoglobin 29.5 pg (27.0-33.0); Mean Corpuscular Volume 90.4 fL (80.0-98.0); NRBC Abs Auto 0.000 X10*3/uL (0.0-0.012); NRBC Pct Auto 0.0 /100WBC (0.0-0.2); Platelet Count 303 X10*3/uL (160-400); Red Blood Count 4.58 X10*6/uL (4.20-5.50); White Blood Count 5.4 X10*3/uL (4.8-10.8)
[2025-07-05 10:46] LABS: Alanine Aminotransferase 14 U/L (0-31); Albumin Level 4.4 g/dL (3.5-5.0); Alkaline Phosphatase 164 U/L (39-117); Anion Gap 11 (12-20); Aspartate Amino Transferase 24 U/L (5-31); Blood Urea Nitrogen 19 mg/dL (9-16); Calcium 9.6 mg/dL (8.4-10.2); Carbon Dioxide 27 mmol/L (22-29); Chloride 100 mmol/L (96-108); Cholesterol 195 mg/dL (<200); Estimated Glomerular Filt Rate > 60; HDL Cholesterol 56 mg/dL (>40); Potassium 3.8 mmol/L (3.3-5.1); Sodium 134 mmol/L (135-145); Total Protein 7.4 g/dL (6.5-8.0); Triglycerides 130 mg/dL (<150)
[2025-07-05 10:56] LABS: ~HepC Num1 0.11 S/CO (0.00-0.79); ~Hepatitis C Antibody Nonreactive (Nonreactive)
== END 2025-07-05 08:16 | disposition home or self-care (01) ==
LOC: HO.HMGCLDS 08:15
PROVIDERS: PCP Internal Medicine; Visit Provider Internal Medicine
DX: Z00.00 Encounter for general adult medical examination without abnormal findings (principal); Z11.59 Encounter for screening for other viral diseases; I10 Essential (primary) hypertension; R79.9 Abnormal finding of blood chemistry, unspecified
CPT/HCPCS: 36415; 80053; 80061; 83036; 84443; 85025; 86803